=== PATIENT | female | born 1935 | race African-American/Black ===

== ENCOUNTER 2019-04-02 00:39 | Emergency (ER) | payer MEDICAID, MEDICARE ==
[~2019-04-02] VITALS: Ht 162.6 cm; Wt 85.0 kg
[2019-04-02] MEDS ORDERED: DEXTROSE 50% WATER 50ML SYRINGE IV ONE ×2 (01:07→03:15)
[2019-04-02 01:52] LABS: BASOPHILS % 0.3 % (0.0-2.0); EOSINOPHILS % 0.5 % (0.0-5.0); HEMATOCRIT. 36.5 % (36.0-48.0); HEMOGLOBIN. 12.1 g/dL (12.0-16.0); LYMPHOCYTES % 28.1 % (20.0-50.0); MEAN CORPUSCULAR HEMOGLOBIN 31.1 pg (28.0-32.0); MEAN CORPUSCULAR VOLUME 93.8 fL (81.0-99.0); MONOCYTES % 11.2 % (2.0-8.0); NEUTROPHILS % 59.9 % (40.0-76.0); PLATELET 186 x1000/uL (130-400); RED BLOOD CELL COUNT 3.89 mill/uL (4.2-5.4); RED CELL DISTRIBUTION WIDTH 14.4 % (11.6-14.6)
[2019-04-02 01:58] LABS: CHLORIDE 113 mEq/L (98-107)
[2019-04-02 02:01] LABS: PROTHROMBIN TIME 10.7 sec (9.6-11.0)
[2019-04-02 02:02] LABS: ETHANOL BLOOD < 10 mg/dL
[2019-04-02 04:31] VITALS: BP 180/88
== END 2019-04-02 04:33 | disposition home or self-care (01) ==
LOC: ER 00:39 → CANBEDREQ 06:56
DX: E11.649 Type 2 diabetes mellitus with hypoglycemia without coma (principal); I10 Essential (primary) hypertension; Z86.73 Personal history of transient ischemic attack (TIA), and cerebral infarction without residual deficits; E03.9 Hypothyroidism, unspecified
CPT/HCPCS: 36415; 71045; 80320; 82962; 84484; 93005; 96374; 99284; G0480

== ENCOUNTER 2019-06-25 14:22 | Emergency (ER) | payer MEDICARE ==
[~2019-06-25] VITALS: Ht 162.6 cm; Wt 82.0 kg
[2019-06-25] MEDS ORDERED: SODIUM CHLORIDE 0.9% 1,000 ML IV ONE (15:18)
[2019-06-25 16:14] LABS: CHLORIDE 110 mEq/L (98-107)
[2019-06-25 16:27] LABS: CARBAMAZEPINE 3.6 ug/mL (4-12)
[2019-06-25 16:56] LABS: BASOPHILS % 0.5 % (0.0-2.0); EOSINOPHILS % 0.3 % (0.0-5.0); HEMATOCRIT. 36.5 % (36.0-48.0); HEMOGLOBIN. 12.2 g/dL (12.0-16.0); LYMPHOCYTES % 23.1 % (20.0-50.0); MEAN CORPUSCULAR VOLUME 92.8 fL (81.0-99.0); MEAN PLATELET VOLUME 7.5 fl (7.4-10.4); NEUTROPHILS % 68.1 % (40.0-76.0); PLATELET 224 x1000/uL (130-400); RED BLOOD CELL COUNT 3.93 mill/uL (4.2-5.4); RED CELL DISTRIBUTION WIDTH 13.5 % (11.6-14.6)
[2019-06-25] MEDS ORDERED: PHENYTOIN SODIUM 1,000 MG in SODIUM CHLORIDE 0.9% 100 ML IV ONE (17:45)
[2019-06-25] MEDS ORDERED: CARBAMAZEPINE 200MG TABLET PO ONE (17:45)
[2019-06-25] MEDS ORDERED: LISINOPRIL 10MG TABLET PO ONE (20:00)
[2019-06-25 20:49] VITALS: BP 129/69
== END 2019-06-25 20:50 | disposition home or self-care (01) ==
LOC: ER 14:22
DX: R56.9 Unspecified convulsions (principal); E11.9 Type 2 diabetes mellitus without complications; I10 Essential (primary) hypertension; Z86.73 Personal history of transient ischemic attack (TIA), and cerebral infarction without residual deficits; Z88.2 Allergy status to sulfonamides; E03.9 Hypothyroidism, unspecified
CPT/HCPCS: 36415; 80053; 80156; 80185; 85025; 96365; 96366; 99283; J1165; J7030; J7050

== ENCOUNTER 2019-07-23 14:24 | Inpatient (IN) | payer MEDICARE ==
[~2019-07-23] VITALS: Ht 162.6 cm; Wt 81.2 kg
[2019-07-23] MEDS ORDERED: SODIUM CHLORIDE 0.9% 500 ML IV ONE (15:12)
[2019-07-23] MEDS ORDERED: ONDANSETRON HCL 4MG/2ML INJ IV STA (15:12)
[2019-07-23 16:13] LABS: CHLORIDE 109 mEq/L (98-107)
[2019-07-23 16:15] LABS: PROTHROMBIN TIME 10.4 sec (9.6-11.0)
[2019-07-23 16:16] LABS: BASOPHILS % 0.2 % (0.0-2.0); EOSINOPHILS % 0.2 % (0.0-5.0); HEMATOCRIT. 34.9 % (36.0-48.0); HEMOGLOBIN. 11.7 g/dL (12.0-16.0); LYMPHOCYTES % 23.9 % (20.0-50.0); MEAN CORPUSCULAR HEMOGLOBIN 31.3 pg (28.0-32.0); MEAN CORPUSCULAR VOLUME 93.1 fL (81.0-99.0); MEAN PLATELET VOLUME 7.7 fl (7.4-10.4); NEUTROPHILS % 68.7 % (40.0-76.0); PLATELET 228 x1000/uL (130-400); RED BLOOD CELL COUNT 3.75 mill/uL (4.2-5.4); RED CELL DISTRIBUTION WIDTH 13.9 % (11.6-14.6)
[2019-07-23 16:19] LABS: ETHANOL BLOOD < 10 mg/dL
[2019-07-23 16:24] LABS: PARTIAL THROMBOPLASTIN TIME < 20.0 sec (23.4-31.0)
[2019-07-23 17:19] LABS: CLARITY URINE CLEAR (CLEAR); COLOR URINE YELLOW (YELLOW); KETONES URINE NEGATIVE (NEGATIVE); LEUKOCYTE ESTERASE URINE NEGATIVE (NEGATIVE); NITRITE URINE NEGATIVE (NEGATIVE); OCCULT BLOOD URINE NEGATIVE (NEGATIVE); PROTEIN URINE 3+ (NEGATIVE); SPECIFIC GRAVITY URINE 1.022 (1.005-1.030)
[2019-07-23] MEDS ORDERED: LORAZEPAM 2MG/ML CPJ IV ONE (18:15)
[2019-07-23] MEDS ORDERED: LEVETIRACETAM 500MG PREMIX 100 ML IV ONE (18:15)
[2019-07-23] MEDS ORDERED: LORAZEPAM 2MG/ML CPJ ONE (18:17)
[2019-07-23] MEDS ORDERED: HYDRALAZINE 20MG/ML VIAL IV PRN (22:00)
[2019-07-23] MEDS ORDERED: ONDANSETRON HCL 4MG/2ML INJ IV PRN (22:00)
[2019-07-23] MEDS ORDERED: LORAZEPAM 2MG/ML CPJ IV PRN (22:00)
[2019-07-23] MEDS ORDERED: CLONIDINE 0.1MG TABLET PO PRN (22:00)
[2019-07-23] MEDS ORDERED: DIPHENHYDRAMINE 50MG/ML VIAL IV PRN (22:00)
[2019-07-24] VITALS (7 sets, daily range): BP systolic 104–187; BP diastolic 50–89
[2019-07-24] MEDS: SODIUM CHLORIDE 0.9% 1,000 ML IV SCH ×3 (00:20→22:11)
[2019-07-24] MEDS: ATORVASTATIN CALCIUM 40MG TABLET PO SCH ×2 (00:21→20:43)
[2019-07-24] MEDS: PHENYTOIN SODIUM EXTENDED 100MG CAPSULE PO SCH ×3 (00:22→13:43)
[2019-07-24] MEDS ORDERED: LEVO25TA7 PO (01:24)
[2019-07-24] MEDS ORDERED: CARB200T PO (01:24)
[2019-07-24] MEDS ORDERED: LISI10TA5 PO (01:24)
[2019-07-24] MEDS ORDERED: ASPI-1497 PO (01:24)
[2019-07-24] MEDS ORDERED: ATOR-2 PO (01:24)
[2019-07-24] MEDS ORDERED: CLOP75TA33 PO (01:24)
[2019-07-24] MEDS: ACETAMINOPHEN 325MG TABLET PO PRN ×2 (05:26→23:11)
[2019-07-24] MEDS: LEVOTHYROXINE SODIUM 25MCG TABLET PO SCH (05:26)
[2019-07-24] MEDS ORDERED: PHENYTOIN SODIUM 1,000 MG in SODIUM CHLORIDE 0.9% 100 ML IV SCH (06:00)
[2019-07-24 07:31] LABS: BASOPHILS % 0.4 % (0.0-2.0); EOSINOPHILS % 0.4 % (0.0-5.0); HEMATOCRIT. 31.3 % (36.0-48.0); HEMOGLOBIN. 10.5 g/dL (12.0-16.0); LYMPHOCYTES % 29.1 % (20.0-50.0); MEAN CORPUSCULAR HEMOGLOBIN 31.4 pg (28.0-32.0); MEAN CORPUSCULAR VOLUME 93.2 fL (81.0-99.0); MEAN PLATELET VOLUME 7.8 fl (7.4-10.4); MONOCYTES % 10.6 % (2.0-8.0); NEUTROPHILS % 59.5 % (40.0-76.0); PLATELET 188 x1000/uL (130-400); RED BLOOD CELL COUNT 3.36 mill/uL (4.2-5.4); RED CELL DISTRIBUTION WIDTH 13.7 % (11.6-14.6)
[2019-07-24 08:05] LABS: CHLORIDE 111 mEq/L (98-107)
[2019-07-24] MEDS: CARVEDILOL 12.5MG TABLET PO SCH ×2 (08:27→20:43)
[2019-07-24] MEDS: LISINOPRIL 10MG TABLET PO SCH (08:27)
[2019-07-24] MEDS: CARBAMAZEPINE 100MG TABLET CHEW PO SCH ×2 (08:33→18:01)
[2019-07-24] MEDS: CLOPIDOGREL 75MG TABLET PO SCH (08:33)
[2019-07-24] MEDS: PHENYTOIN SODIUM 100MG/2ML VIAL IV SCH (20:42)
[2019-07-25] VITALS: BP 136/76
[2019-07-25 04:00] VITALS: BP 158/74
[2019-07-25] MEDS: SODIUM CHLORIDE 0.9% 1,000 ML IV SCH ×2 (06:34→13:52)
[2019-07-25] MEDS: CARBAMAZEPINE 100MG TABLET CHEW PO SCH ×2 (06:34→17:21)
[2019-07-25] MEDS: LEVOTHYROXINE SODIUM 25MCG TABLET PO SCH (06:40)
[2019-07-25 07:11] LABS: CHLORIDE 115 mEq/L (98-107)
[2019-07-25 07:28] LABS: PHOSPHORUS 3.3 mg/dL (2.5-4.9)
[2019-07-25 07:46] LABS: BASOPHILS % 0.3 % (0.0-2.0); EOSINOPHILS % 0.6 % (0.0-5.0); HEMATOCRIT. 29.9 % (36.0-48.0); LYMPHOCYTES % 33.9 % (20.0-50.0); MEAN CORPUSCULAR HEMOGLOBIN 31.3 pg (28.0-32.0); MEAN CORPUSCULAR VOLUME 93.3 fL (81.0-99.0); MEAN PLATELET VOLUME 7.6 fl (7.4-10.4); MONOCYTES % 12.1 % (2.0-8.0); NEUTROPHILS % 53.1 % (40.0-76.0); PLATELET 183 x1000/uL (130-400)
[2019-07-25 08:00] VITALS: BP 154/72
[2019-07-25] MEDS: CLOPIDOGREL 75MG TABLET PO SCH (08:54)
[2019-07-25] MEDS: LISINOPRIL 10MG TABLET PO SCH (08:55)
[2019-07-25] MEDS: PHENYTOIN SODIUM 100MG/2ML VIAL IV SCH ×2 (08:56→21:04)
[2019-07-25] MEDS: CARVEDILOL 12.5MG TABLET PO SCH ×2 (08:56→21:05)
[2019-07-25 12:00] VITALS: BP 162/67
[2019-07-25] MEDS ORDERED: PHENYTOIN SODIUM 750 MG in SODIUM CHLORIDE 0.9% 100 ML IV NR (14:00)
[2019-07-25] MEDS ORDERED: FUROSEMIDE 40MG/4ML VIAL IVP NR (14:10)
[2019-07-25 14:44] VITALS: BP 123/69
[2019-07-25] MEDS: GUAIFENESIN 200MG/10ML SUGAR FREE UDC PO PRN (15:19)
[2019-07-25 20:00] VITALS: BP 136/97
[2019-07-25] MEDS: ATORVASTATIN CALCIUM 40MG TABLET PO SCH (21:04)
[2019-07-26] VITALS: BP 110/66
[2019-07-26] MEDS: IPRATROPIUM/ALBUTEROL 0.5-3(2.5)MG/3ML NEB HHN SCH ×4 (00:50→15:47)
[2019-07-26 04:00] VITALS: BP 150/60
[2019-07-26] MEDS: LEVOTHYROXINE SODIUM 25MCG TABLET PO SCH (06:03)
[2019-07-26 08:00] VITALS: BP 144/76
[2019-07-26] MEDS: CARBAMAZEPINE 100MG TABLET CHEW PO SCH ×2 (10:54→17:54)
[2019-07-26] MEDS: PHENYTOIN SODIUM 100MG/2ML VIAL IV SCH (10:54)
[2019-07-26] MEDS: GUAIFENESIN 200MG/10ML SUGAR FREE UDC PO PRN (10:54)
[2019-07-26] MEDS: CARVEDILOL 12.5MG TABLET PO SCH (10:55)
[2019-07-26] MEDS: CLOPIDOGREL 75MG TABLET PO SCH (10:55)
[2019-07-26] MEDS: LISINOPRIL 10MG TABLET PO SCH (10:55)
[2019-07-26 12:00] VITALS: BP 136/63
[2019-07-26 16:00] VITALS: BP 144/66
[2019-07-26 16:49] VITALS: BP 144/66
== END 2019-07-26 18:30 | disposition home health service (06) | DRG 101 ==
LOC: ER 14:24 → 5WST 17:45 → EDBEDREQ 17:49 → ENRESERV 20:24
PROVIDERS: ADMIT Internal Medicine; ATTEND Internal Medicine
DX: G40.909 Epilepsy, unspecified, not intractable, without status epilepticus (principal); I69.354 Hemiplegia and hemiparesis following cerebral infarction affecting left non-dominant side; I10 Essential (primary) hypertension; F41.1 Generalized anxiety disorder; E03.9 Hypothyroidism, unspecified; M19.90 Unspecified osteoarthritis, unspecified site; E78.00 Pure hypercholesterolemia, unspecified; Z90.49 Acquired absence of other specified parts of digestive tract; Z82.49 Family history of ischemic heart disease and other diseases of the circulatory system; Z79.899 Other long term (current) drug therapy; Z88.2 Allergy status to sulfonamides; Z83.3 Family history of diabetes mellitus
CPT/HCPCS: 36415; 71045; 80048; 80053; 80185; 80320; 81003; 82962; 83605; 83735; 83880; 84100; 84443; 84484; 85025; 92610; 93005; 93970; 96374; 97162; 99285; C1893; J1165; J1940; J1953; J2060; J2405; J7030; J7040; J7050; J7620; G0480

== ENCOUNTER 2019-10-16 19:12 | Emergency (ER) | payer MEDICARE ==
[~2019-10-16] VITALS: Ht 160 cm; Wt 75.0 kg
[~2019-10-16 19:12] MED LIST: ASPI-1497 PO; ATOR-2 PO; CARB200T PO; CLOP75TA33 PO; LEVO25TA7 PO; LISI10TA5 PO
[2019-10-16] MEDS ORDERED: LIDOCAINE HCL/EPINEPHRINE 1%-EPI 1:100,000 30 ML VIAL INFIL ONE (21:00)
[2019-10-16] MEDS ORDERED: LIDOCAINE HCL/EPINEPHRINE 1%-EPI 1:100,000 20 ML VIAL INFIL SCH (21:30)
[2019-10-16 23:22] VITALS: BP 150/82
== END 2019-10-16 23:33 | disposition home or self-care (01) ==
LOC: ER 19:12
DX: S01.81XA Laceration without foreign body of other part of head, initial encounter (principal); S09.90XA Unspecified injury of head, initial encounter; E11.9 Type 2 diabetes mellitus without complications; G40.909 Epilepsy, unspecified, not intractable, without status epilepticus; Z86.73 Personal history of transient ischemic attack (TIA), and cerebral infarction without residual deficits; Z88.2 Allergy status to sulfonamides; W01.0XXA Fall on same level from slipping, tripping and stumbling without subsequent striking against object, initial encounter; Y93.89 Activity, other specified; Y92.012 Bathroom of single-family (private) house as the place of occurrence of the external cause
CPT/HCPCS: 12011; 70450; 72125; 99285; J3490; 36415